=== PATIENT | male | born 1990 | race American Indian/Alaskan Native ===

== ENCOUNTER 2020-06-21 22:57 | Emergency (ER) | payer MEDICARE, OTHER ==
[2020-06-21] MEDS ORDERED: ACETAMINOPHEN 325 MG TAB PO ONE (23:51)
[2020-06-21] MEDS ORDERED: ACETAMINOPHEN 325 MG TAB ONE (23:53)
[2020-06-22] MEDS ORDERED: IBUPROFEN 600 MG TAB PO ONE (00:32)
[2020-06-22] MEDS ORDERED: AMOXICILLIN/K CLAV 875/125MG TAB PO ONE (00:32)
[2020-06-22] MEDS ORDERED: oxyCODONE /ACETAMINOPHEN 5-325MG TAB PO ONE (00:32)
[2020-06-22] MEDS ORDERED: ONDANSETRON 4 MG ODT TAB PO ONE (00:32)
[2020-06-22 01:37] VITALS: BP 147/97
--- NOTE | 2020-06-22 01:40 | Emergency Department Report ---
ED General Adult HPI - General Chief complaint: Dental/Oral Stated complaint: TOOTHACHE/LEFT SIDE FACIAL PAIN Source: patient Mode of arrival: Ambulatory Limitations: No Limitations - History of Present Illness Initial comments: Patient is a 30-year-old male with no past medical history who presents to the ED with complaint of acute onset persistent severe left mandibular premolar molar toothache and swelling for the last 4 hours. Patient states that he has not been able to sleep because of severe left mandibular premolar molar toothache. Patient denies fever, chills, nausea, vomiting, sore throat, traumatic injury, dizziness, change in vision, syncope, headache, chest pain or shortness of breath. MD Complaint: left lower gingival pain; left mandibular premolar and molar toothache -: Sudden, hour(s) (4) Location: mouth Radiation: non-radiation Severity scale (0 -10): 8 Quality: aching, sharp Consistency: constant Improves with: none Worsens with: none Associated Symptoms: denies other symptoms. denies: confusion, chest pain, cough, diaphoresis, fever/chills, headaches, loss of appetite, nausea/vomiting, rash, shortness of breath, syncope, weakness Treatments Prior to Arrival: none - Related Data Previous Rx's Medication Instructions Recorded Last Taken Type Clindamycin [Clindamycin CAP] 300 mg PO Q8HR #60 capsule 06/22/20 Unknown Rx Ketorolac [Toradol] 10 mg PO Q8H PRN #20 tablet 06/22/20 Unknown Rx traMADoL [Ultram] 50 mg PO Q4HR PRN #12 tablet 06/22/20 Unknown Rx Allergies Allergy/AdvReac Type Severity Reaction Status Date / Time No Known Allergies Allergy Verified 06/21/20 23:53 ED Review of Systems ROS: Stated complaint: TOOTHACHE/LEFT SIDE FACIAL PAIN Other details as noted in HPI Constitutional: denies: chills, fever Eyes: denies: eye pain, eye discharge, vision change ENT: dental pain, other (Swelling left mandibular gums and premolar molar tooth ache). denies: ear pain, throat pain Respiratory: denies: cough, shortness of breath, wheezing Cardiovascular: denies: chest pain, palpitations Endocrine: no symptoms reported Gastrointestinal: denies: abdominal pain, nausea, diarrhea Genitourinary: denies: urgency, dysuria Musculoskeletal: denies: back pain, joint swelling, arthralgia Skin: denies: rash, lesions Neurological: denies: headache, weakness, paresthesias Psychiatric: denies: anxiety, depression Hematological/Lymphatic: denies: easy bleeding, easy bruising ED Past Medical Hx - Past Medical History Previous Medical History?: No - Surgical History Past Surgical History?: No - Social History Smoking Status: Never Smoker Substance Use Type: None - Medications Home Medications: Home Medications Medication Instructions Recorded Confirmed Last Taken Type Clindamycin [Clindamycin CAP] 300 mg PO Q8HR #60 capsule 06/22/20 Unknown Rx Ketorolac [Toradol] 10 mg PO Q8H PRN #20 tablet 06/22/20 Unknown Rx traMADoL [Ultram] 50 mg PO Q4HR PRN #12 tablet 06/22/20 Unknown Rx ED Physical Exam - General Limitations: No Limitations General appearance: alert, in no apparent distress - Head Head exam: Present: atraumatic, normocephalic, normal inspection - Eye Eye exam: Present: normal appearance, PERRL, EOMI Pupils: Present: normal accommodation - ENT ENT exam: Present: mucous membranes moist, TM's normal bilaterally, normal external ear exam, other (Swollen, severely tender left mandibular gingiva; severely tender left mandibular premolar molar teeth) - Neck Neck exam: Present: normal inspection, full ROM. Absent: tenderness - Respiratory Respiratory exam: Present: normal lung sounds bilaterally. Absent: respiratory distress, wheezes, rales, chest wall tenderness, accessory muscle use, prolonged expiratory - Cardiovascular Cardiovascular Exam: Present: regular rate, normal rhythm, normal heart sounds. Absent: systolic murmur, diastolic murmur, rubs, gallop - GI/Abdominal GI/Abdominal exam: Present: soft, normal bowel sounds. Absent: tenderness, guarding, rigid, hyperactive bowel sounds, hypoactive bowel sounds - Extremities Exam Extremities exam: Present: normal inspection, full ROM, normal capillary refill. Absent: tenderness, pedal edema, joint swelling, calf tenderness - Back Exam Back exam: Present: normal inspection, full ROM. Absent: tenderness, CVA tenderness (R), CVA tenderness (L), muscle spasm, paraspinal tenderness, vertebral tenderness - Neurological Exam Neurological exam: Present: alert, oriented X3, CN II-XII intact, normal gait, reflexes normal - Psychiatric Psychiatric exam: Present: normal affect, normal mood - Skin Skin exam: Present: warm, dry, intact, normal color. Absent: rash ED Course Vital Signs 06/21/20 23:53 Respiratory 18 Rate ED Medical Decision Making - Medical Decision Making This is a 30-year-old male with no past medical history who presents to the ED with complaint of acute onset persistent severe left mandibular premolar molar toothache and swelling for the last 4 hours. Patient states that he has not been able to sleep because of severe left mandibular premolar molar toothache. In the ED, patient is alert and oriented x3 and is not in distress. Patient appears to be in significant pain during the physical exam. Patient was treated for pain in the ED and also given initial oral antibiotics. On reevaluation, patient's pain is well controlled medications. Patient was advised to follow-up with his primary care physician or dentist in 7 to 10 days for reevaluation or return to the ED immediately if symptoms get worse. - Differential Diagnosis dental abscess; gingivitis; dental caries Critical care attestation.: If time is entered above; I have spent that time in minutes in the direct care of this critically ill patient, excluding procedure time. ED Disposition Clinical Impression: Dental abscess, Acute gingivitis, Dental caries Disposition: TO HOME OR SELFCARE Is pt being admited?: No Does the pt Need Aspirin: No Condition: Stable Instructions: Dental Abscess (ED), Gingivitis (ED) Additional Instructions: Take medication with food, drink plenty of fluids and follow-up with your primary care physician or dentist in 7 to 10 days for reevaluation. Return to the ED immediately if symptoms get worse. Prescriptions: Clindamycin [Clindamycin CAP] 300 mg PO Q8HR #60 capsule Ketorolac [Toradol] 10 mg PO Q8H PRN #20 tablet PRN Reason: Pain traMADoL [Ultram] 50 mg PO Q4HR PRN #12 tablet PRN Reason: Pain Referrals: [facility] [Outside] - 3-5 Days [facility] [Outside] - 3-5 Days Time of Disposition: 01:40 Print Language: FRENCH
== END 2020-06-22 01:50 | disposition home or self-care (01) ==
LOC: ED 22:57
DX: K04.7 Periapical abscess without sinus (principal); K02.9 Dental caries, unspecified; K05.00 Acute gingivitis, plaque induced; Z79.899 Other long term (current) drug therapy
CPT/HCPCS: 99282; Q0162